=== PATIENT | male | born 1975 | race Caucasian/White ===

== ENCOUNTER 2018-04-09 15:36 | Inpatient (IN) | payer OTHER ==
[2018-04-09 17:37] VITALS: BMI 22.8
--- NOTE | 2018-04-09 19:35 | HP ---
Admission [facility] Chief Complaint: marijuana and cocaine rehabilitation Allergies/Adverse Reactions: Allergies Allergy/AdvReac Type Severity Reaction Status Date / Time No Known Allergies Allergy Verified 04/09/18 19:45 History of Present Illness: 42 yo male with hx of cocaine, marijuana, IV heroin, and nicotine dependence is here for rehabilitation. Patient reports recently started using heroin again in the last two days. Patient linked to MMTP: Sathish Kauffman on 50 mg, last mediated , dose pending verification. PMHX: HIV+ (non-compliance with medications) and anxiety. Denies suicidal / homicidal ideation or suicide attempt. Reports opioid overdose x 7, last episode six years ago. Last detox [facility] three months ago. Exam Limitations: No Limitations - Ebola screening Have you traveled outside of the country in the last 21 days: No Have you had contact with anyone from an Ebola affected area: No Have you been sick,other than usual withdrawal symptoms: No Do you have a fever: No - Review of Systems Constitutional: No Symptoms Reported EENT: reports: Other (uses reading glasses) Respiratory: reports: No Symptoms reported Cardiac: reports: No Symptoms Reported GI: reports: No Symptoms Reported : reports: No Symptoms Reported Musculoskeletal: reports: No Symptoms Reported Integumentary: reports: No Symptoms Reported Neuro: reports: No Symptoms reported Endocrine: reports: Increased Thirst Hematology: reports: See HPI Psychiatric: reports: Orientated x3, Anxious Other Systems: Reviewed and Negative Patient History - Patient Medical History Hx Anemia: No Hx Asthma: No Hx Chronic Obstructive Pulmonary Disease (COPD): No Hx Cancer: No Hx Cardiac Disorders: No Hx Congestive Heart Failure: No Hx Hypertension: No Hx Hypercholesterolemia: No Hx Pacemaker: No HX Cerebrovascular Accident: No Hx Seizures: No Hx Dementia: No Hx Diabetes: No Hx Gastrointestinal Disorders: No Hx Liver Disease: No Hx Genitourinary Disorders: No Hx Sexually Transmitted Disorders: No Hx Renal Disease (ESRD): No Hx Thyroid Disease: No Hx Human Immunodeficiency Virus (HIV): Yes (+ 1995, Trivicay and Discovy stopped taking med 5 months ) Hx Hepatitis C: Yes (did not complete treatment ) Hx Depression: No Hx Suicide Attempt: No Hx Bipolar Disorder: No Hx Schizophrenia: No - Patient Surgical History Past Surgical History: Yes Hx Neurologic Surgery: No Hx Cataract Extraction: No Hx Cardiac Surgery: No Hx Lung Surgery: No Hx Breast Surgery: No Hx Breast Biopsy: No Hx Abdominal Surgery: No Hx Appendectomy: No Hx Cholecystectomy: No Hx Genitourinary Surgery: No Hx Section: No Hx Orthopedic Surgery: Yes (fx right ankle 2007) Anesthesia Reaction: No - PPD History Previous Implant?: No Documented Results: Negative w/o proof Implanted On Prior [facility] Admission?: No PPD to be Administered?: Yes - Smoking Cessation Smoking history: Current every day smoker Have you smoked in the past 12 months: Yes Aproximately how many cigarettes per day: 7 Hx Chewing Tobacco Use: No Initiated information on smoking cessation: Yes 'Breaking Loose' booklet given: 04/09/18 - Substance & Tx. History Hx Alcohol Use: No Hx Substance Use: Yes Substance Use Type: Cocaine, Heroin, Marijuana Hx Substance Use Treatment: Yes ([facility] three months ago ) - Substances Abused Cocaine Route: Injection Frequency: Daily Amount used: 5 - 6 bags Age of first use: 15 Date of Last Use: 04/08/18 Heroin Route: Injection Frequency: Daily Amount used: 4 bags Age of first use: 15 Date of Last Use: 04/08/18 Marijuana/Hashish Route: Smoking Frequency: Daily Amount used: 1 blunt Age of first use: 42 Date of Last Use: 04/08/18 Family Disease History - Family Disease History Family History: Denies Admission Physical Exam [facility] - Vital Signs Vital Signs: Vital Signs - 24 hr 04/09/18 17:34 Temperature 96.6 F L Pulse Rate 53 L Respiratory 18 Rate Blood Pressure 118/82 - Physical General Appearance: Yes: Disheveled, Thin, Anxious HEENTM: Yes: EOMI, Hearing grossly Normal, Normal ENT Inspection, Normocephalic , ANASTASIIA, Pharynx Normal, Tm's normal, Other (poor dentition) Respiratory: Yes: Within Normal Limits Neck: Yes: Within Normal Limits Breast: Yes: Breast Exam Deferred Cardiology: Yes: Regular Rhythm, Regular Rate Abdominal: Yes: Normal Bowel Sounds, Non Tender, Flat, Soft Genitourinary: Yes: Within Normal Limits Back: Yes: Normal Inspection Musculoskeletal: Yes: full range of Motion, Gait Steady, Pelvis Stable Extremities: Yes: Within Normal Limits Neurological: Yes: ink grinder II-XII NML intact, Fully Oriented, Alert, Motor Strength 5/5, Normal Mood/Affect, Normal Response Integumentary: Yes: Normal Color, Warm, Track Adkins (right side neck, no infection present left fore arm, no infection) Lymphatic: Yes: Within Normal Limits - Diagnostic (1) Marijuana dependence Current Visit: Yes Status: Acute (2) Opioid dependence on agonist therapy Current Visit: Yes Status: Acute Comment: on MMTP: Sathish Kauffman on methadone 50 mg qd, dose pending verification (3) Cocaine dependence Current Visit: Yes Status: Acute Qualifiers: Substance use status: uncomplicated Qualified Code(s): F14.20 - Cocaine dependence, uncomplicated (4) HIV (human immunodeficiency virus infection) Current Visit: Yes Status: Chronic BHS Breath Alcohol Content Breath Alcohol Content: 0 Urine Drug Screen - Results Drug Screen Negative: No Urine Drug Screen Results: THC-Marijuana, GRETCHEN-Cocaine, OPI-Opiates, MTD- Methadone Inpatient Rehab Admission - Initial Determination Are CD services needed?: Yes Free of communicable disease: Yes Not in need of hospitalization: Yes - Rehab Admission Criteria Previous failed treatment: Yes Poor recovery environment: Yes Comorbidities: Yes Lacks judgement: Yes Patient is meeting Inpatient Rehab admission criteria:: Yes
[2018-04-09] MEDS ORDERED: MAG HYDROX/AL HYDROX/SIMETH 30 ML UNIT-DOSE CUP PO PRN (19:47)
[2018-04-09] MEDS ORDERED: MAGNESIUM HYDROX 2400MG/30ML ORAL SUSPENSION 30 ML CUP PO PRN (19:47)
[2018-04-09] MEDS ORDERED: guaiFENesin/D-METHORPHAN HB 10 ML UNIT-DOSE CUPS PO PRN (19:47)
[2018-04-09] MEDS ORDERED: MENTHOL/PHENOL 1 EACH UD MM PRN (19:47)
[2018-04-09] MEDS ORDERED: MAGNESIUM CITRATE 300 ML BOTTLE PO PRN (19:47)
[2018-04-09] MEDS ORDERED: LOPERAMIDE HCL 2 MG CAPSULE PO PRN (19:47)
[2018-04-09] MEDS ORDERED: ACETAMINOPHEN 325 MG TABLET (FP) PO PRN (19:47)
[2018-04-09] MEDS ORDERED: P-EPHED 60MG/TRIPROLIDI 2.5MG TABLET PO PRN (19:47)
[2018-04-09] MEDS ORDERED: IBUPROFEN 400 MG TABLET (FP) PO PRN (19:47)
[2018-04-09] MEDS ORDERED: TUBERCULIN PPD 5 TU/0.1ML VIAL ID ONE (21:55)
[2018-04-09] MEDS: THIAMINE HCL 100 MG TABLET (FP) PO SCH (23:15)
[2018-04-10 01:58] LABS: URINE APPEARANCE CLEAR; URINE BILIRUBIN NEGATIVE (<2.0 mg/dL); URINE COLOR DKYELLOW; URINE GLUCOSE (UA) NEGATIVE (NEGATIVE); URINE KETONE NEGATIVE (NEGATIVE); URINE LEUK ESTERASE NEGATIVE (NEGATIVE); URINE NITRITE NEGATIVE (NEGATIVE); URINE PROTEIN NEGATIVE (NEGATIVE)
[2018-04-10] MEDS: PRENATAL VITAMINS W/ FOLIC ACID TABLET (FP) PO SCH (09:52)
[2018-04-10] MEDS: NICOTINE 14 MG/24 HOURS TOPICAL PATCH TD SCH (09:54)
[2018-04-10] MEDS ORDERED: METHADONE HCL 40 MG DISPERSABLE TABLET PO ONE (10:00)
[2018-04-10] MEDS ORDERED: METHADONE 40 MG, METHADONE 10 MG PO ONE (10:25)
[2018-04-10] MEDS ORDERED: METHADONE HCL 10 MG TABLET ONE (10:27)
[2018-04-10] MEDS ORDERED: METHADONE HCL 40 MG DISPERSABLE TABLET ONE (10:28)
--- NOTE | 2018-04-10 11:39 | HP ---
Psychiatrist Admission - Data Date of interview: 04/10/18 Admission source: [facility] Identifying data: Patient is a 42 year old male, father of two, unemployed, residing in a intermediate, and is supported by food stamps. This is patient's first admission in rehab at [facility]. Pt. admitted to rehab for opiate and cocaine dependence. Medical History: HIV, Hep C Psychiatric History: Patient denies h/o psychiatric hospitalization, outpatient care, and suicide attempt. Pt. is currently in the [facility] Methadone program and is on a Methadone Maintenance of 50mg daily. Physical/Sexual Abuse/Trauma History: denies. Vital Signs: Vital Signs - 24 hr 04/09/18 04/09/18 04/10/18 17:34 22:01 00:30 Temperature 96.6 F L 99.0 F Pulse Rate 53 L 50 L Respiratory 18 18 18 Rate Blood Pressure 118/82 129/86 04/10/18 04/10/18 03:30 06:41 Temperature 97.8 F Pulse Rate 52 L Respiratory 18 16 Rate Blood Pressure 131/76 Allergies/Adverse Reactions: Allergies Allergy/AdvReac Type Severity Reaction Status Date / Time No Known Allergies Allergy Verified 04/09/18 19:45 Date of last physical exam: 04/09/18 Concur with the findings of this exam: Yes - Substance Abuse/Tx History Hx Alcohol Use: No Hx Substance Use: Yes (Cocaine- 7-8 bags daily Heroin- 7-8 bags daily) Substance Use Type: Cocaine, Heroin Hx Substance Use Treatment: No Mental Status Exam - Mental Status Exam Alert and Oriented to: Time, Place, Person Cognitive Function: Good Patient Appearance: Well Groomed Mood: Hopeful, Euthymic Affect: Appropriate Patient Behavior: Appropriate, Cooperative Speech Pattern: Clear, Appropriate (Pashto speaking) Voice Loudness: Normal Thought Process: Intact, Goal Oriented Thought Disorder: Not Present Hallucinations: Denies Suicidal Ideation: Denies Homicidal Ideation: Denies Insight/Judgement: Poor Sleep: Fair Appetite: Fair Muscle strength/Tone: Normal Gait/Station: Normal Psychiatric Findings - Problem List ([place] 1, 2,3) (1) Cocaine dependence Current Visit: Yes Status: Acute Qualifiers: Substance use status: uncomplicated Qualified Code(s): F14.20 - Cocaine dependence, uncomplicated (2) Marijuana dependence Current Visit: Yes Status: Acute (3) Opioid dependence on agonist therapy Current Visit: Yes Status: Chronic Comment: on MMTP: Sathish Kauffman on methadone 50 mg qd, dose pending verification - Initial Treatment Plan Initial Treatment Plan: Psychoeducation provided. Rehab in progress. Observation.
--- NOTE | 2018-04-10 12:32 | EKG ---
Test Reason : Blood Pressure : / mmHG Vent. Rate : 048 BPM Atrial Rate : 048 BPM P-R Int : 138 ms QRS Dur : 130 ms QT Int : 472 ms P-R-T Axes : 053 055 061 degrees QTc Int : 421 ms SINUS BRADYCARDIA RIGHT BUNDLE BRANCH BLOCK VOLTAGE CRITERIA FOR LEFT VENTRICULAR HYPERTROPHY ABNORMAL ECG NO PREVIOUS ECGS AVAILABLE Confirmed by COSME CROCKER MD ([id number]) on 04/10/2018 12:32:04 PM Referred By: Confirmed By:COSME CROCKER MD
[2018-04-10 16:08] LABS: HEMATOCRIT 35.9 % (35.4-49); MCH 31.3 pg (25.7-33.7); MCHC 33.4 g/dl (32.0-35.9); MEAN CELL VOLUME 93.8 fl (80-96); MEAN PLT VOLUME 9.9 fl (7.5-11.1); PLATELET COUNT 207 K/MM3 (134-434); RBC 3.83 M/mm3 (4.00-5.60); RDW 13.9 % (11.9-15.9); WHITE BLOOD COUNT 4.4 K/mm3 (4.0-10.0)
[2018-04-10 16:35] LABS: ALK PHOS 79 U/L (45-117); ANION GAP 7 MMOL/L (8-16); BILIRUBIN,TOTAL 0.2 mg/dL (0.2-1.0); BLOOD UREA NITROGEN 11 mg/dL (7-18); CALCIUM 8.5 mg/dL (8.5-10.1); CHLORIDE 105 mmol/L (98-107); CO2 30 mmol/L (21-32); CREATININE 0.7 mg/dL (0.7-1.3); GLUCOSE,RANDOM 93 mg/dL (74-106); SGOT/AST 24 U/L (15-37); SGPT/ALT 26 U/L (12-78); SODIUM 142 mmol/L (136-145); TOT PROT 7.8 g/dl (6.4-8.2)
[2018-04-10] MEDS: NICOTINE POLACRILEX 2 MG GUM BC PRN (20:09)
[2018-04-10] MEDS: THIAMINE HCL 100 MG TABLET (FP) PO SCH (21:52)
[2018-04-11] MEDS ORDERED: METHADONE HCL 10 MG TABLET ONE (04:36)
[2018-04-11] MEDS ORDERED: METHADONE HCL 40 MG DISPERSABLE TABLET ONE (04:36)
[2018-04-11] MEDS ORDERED: METHADONE HCL 10 MG TABLET PO SCH (06:00)
[2018-04-11] MEDS: METHADONE 40 MG, METHADONE 10 MG PO SCH (06:59)
[2018-04-11] MEDS: PRENATAL VITAMINS W/ FOLIC ACID TABLET (FP) PO SCH (09:49)
[2018-04-11] MEDS: NICOTINE 14 MG/24 HOURS TOPICAL PATCH TD SCH (09:49)
--- NOTE | 2018-04-11 13:11 | PN ---
[facility] Progress Note Note: Vital Signs Temperature 98.5 F 04/11/18 06:38 Pulse Rate 52 L 04/11/18 06:38 Respiratory Rate 16 04/11/18 06:38 Blood Pressure 135/73 04/11/18 06:38 O2 Sat by Pulse Oximetry (%) Laboratory Last Values WBC 4.4 K/mm3 (4.0-10.0) 04/10/18 10:30 RBC 3.83 M/mm3 (4.00-5.60) L 04/10/18 10:30 Hgb 12.0 GM/dL (11.7-16.9) 04/10/18 10:30 Hct 35.9 % (35.4-49) 04/10/18 10:30 MCV 93.8 fl (80-96) 04/10/18 10:30 MCH 31.3 pg (25.7-33.7) 04/10/18 10:30 MCHC 33.4 g/dl (32.0-35.9) 04/10/18 10:30 RDW 13.9 % (11.9-15.9) 04/10/18 10:30 Plt Count 207 K/MM3 (134-434) 04/10/18 10:30 MPV 9.9 fl (7.5-11.1) 04/10/18 10:30 Sodium 142 mmol/L (136-145) 04/10/18 10:30 Potassium 4.0 mmol/L (3.5-5.1) 04/10/18 10:30 Chloride 105 mmol/L (98-107) 04/10/18 10:30 Carbon Dioxide 30 mmol/L (21-32) 04/10/18 10:30 Anion Gap 7 MMOL/L (8-16) L 04/10/18 10:30 BUN 11 mg/dL (7-18) 04/10/18 10:30 Creatinine 0.7 mg/dL (0.7-1.3) 04/10/18 10:30 Creat Clearance w eGFR > 60 (>60) 04/10/18 10:30 Random Glucose 93 mg/dL (74-106) 04/10/18 10:30 Calcium 8.5 mg/dL (8.5-10.1) 04/10/18 10:30 Total Bilirubin 0.2 mg/dL (0.2-1.0) 04/10/18 10:30 AST 24 U/L (15-37) 04/10/18 10:30 ALT 26 U/L (12-78) 04/10/18 10:30 Alkaline Phosphatase 79 U/L (45-117) 04/10/18 10:30 Total Protein 7.8 g/dl (6.4-8.2) 04/10/18 10:30 Albumin 3.0 g/dl (3.4-5.0) L 04/10/18 10:30 Urine Color Dkyellow 04/10/18 00:00 Urine Appearance Clear 04/10/18 00:00 Urine pH 6.0 (5.0-8.0) 04/10/18 00:00 Ur Specific [place] 1.027 (1.001-1.035) 04/10/18 00:00 Urine Protein Negative (NEGATIVE) 04/10/18 00:00 Urine Glucose (UA) Negative (NEGATIVE) 04/10/18 00:00 Urine Ketones Negative (NEGATIVE) 04/10/18 00:00 Urine Blood Negative (NEGATIVE) 04/10/18 00:00 Urine Nitrite Negative (NEGATIVE) 04/10/18 00:00 Urine Bilirubin Negative (<2.0 mg/dL) 04/10/18 00:00 Urine Urobilinogen 2.0 mg/dL (0.2-1.0) 04/10/18 00:00 Ur Leukocyte Esterase Negative (NEGATIVE) 04/10/18 00:00 RPR Titer Nonreactive (NONREACTIVE) 04/10/18 10:30 labs reviewed continue to monitor
[2018-04-11] MEDS: THIAMINE HCL 100 MG TABLET (FP) PO SCH (21:48)
[2018-04-12] MEDS ORDERED: METHADONE HCL 10 MG TABLET ONE (04:17)
[2018-04-12] MEDS ORDERED: METHADONE HCL 40 MG DISPERSABLE TABLET ONE (04:18)
[2018-04-12] MEDS: METHADONE 40 MG, METHADONE 10 MG PO SCH (06:25)
[2018-04-12] MEDS: PRENATAL VITAMINS W/ FOLIC ACID TABLET (FP) PO SCH (10:14)
[2018-04-12] MEDS: NICOTINE 14 MG/24 HOURS TOPICAL PATCH TD SCH (10:15)
[2018-04-12] MEDS: NICOTINE POLACRILEX 2 MG GUM BC PRN (10:16)
[2018-04-12] MEDS: MELATONIN 5 MG TABLETS PO PRN (21:59)
[2018-04-12] MEDS: THIAMINE HCL 100 MG TABLET (FP) PO SCH (21:59)
[2018-04-13] MEDS ORDERED: METHADONE HCL 40 MG DISPERSABLE TABLET ONE (05:06)
[2018-04-13] MEDS ORDERED: METHADONE HCL 10 MG TABLET ONE (05:06)
[2018-04-13] MEDS: METHADONE 40 MG, METHADONE 10 MG PO SCH (06:28)
[2018-04-13] MEDS: PRENATAL VITAMINS W/ FOLIC ACID TABLET (FP) PO SCH (10:05)
[2018-04-13] MEDS: NICOTINE 14 MG/24 HOURS TOPICAL PATCH TD SCH (10:05)
[2018-04-13] MEDS: NICOTINE POLACRILEX 2 MG GUM BC PRN (10:06)
[2018-04-13] MEDS: THIAMINE HCL 100 MG TABLET (FP) PO SCH (22:06)
[2018-04-14] MEDS ORDERED: METHADONE HCL 40 MG DISPERSABLE TABLET ONE (02:08)
[2018-04-14] MEDS ORDERED: METHADONE HCL 10 MG TABLET ONE (02:08)
[2018-04-14] MEDS: METHADONE 40 MG, METHADONE 10 MG PO SCH (06:30)
[2018-04-14] MEDS: PRENATAL VITAMINS W/ FOLIC ACID TABLET (FP) PO SCH (10:03)
[2018-04-14] MEDS: NICOTINE 14 MG/24 HOURS TOPICAL PATCH TD SCH (10:03)
[2018-04-14] MEDS: NICOTINE POLACRILEX 2 MG GUM BC PRN ×2 (10:04→21:36)
[2018-04-14] MEDS: MELATONIN 5 MG TABLETS PO PRN (21:35)
[2018-04-14] MEDS: THIAMINE HCL 100 MG TABLET (FP) PO SCH (21:35)
[2018-04-15] MEDS ORDERED: METHADONE HCL 10 MG TABLET ONE (04:58)
[2018-04-15] MEDS ORDERED: METHADONE HCL 40 MG DISPERSABLE TABLET ONE (04:58)
[2018-04-15] MEDS: METHADONE 40 MG, METHADONE 10 MG PO SCH (06:48)
[2018-04-15] MEDS: NICOTINE 14 MG/24 HOURS TOPICAL PATCH TD SCH (12:07)
[2018-04-15] MEDS: PRENATAL VITAMINS W/ FOLIC ACID TABLET (FP) PO SCH (12:07)
[2018-04-15] MEDS: THIAMINE HCL 100 MG TABLET (FP) PO SCH (22:16)
[2018-04-16] MEDS ORDERED: METHADONE HCL 40 MG DISPERSABLE TABLET ONE (03:29)
[2018-04-16] MEDS ORDERED: METHADONE HCL 10 MG TABLET ONE (03:29)
[2018-04-16] MEDS: METHADONE 40 MG, METHADONE 10 MG PO SCH (06:36)
[2018-04-16] MEDS: PRENATAL VITAMINS W/ FOLIC ACID TABLET (FP) PO SCH (10:15)
[2018-04-16] MEDS: NICOTINE 14 MG/24 HOURS TOPICAL PATCH TD SCH (10:15)
[2018-04-16] MEDS: NICOTINE POLACRILEX 2 MG GUM BC PRN ×2 (14:46→21:34)
[2018-04-16] MEDS: MELATONIN 5 MG TABLETS PO PRN (21:33)
[2018-04-16] MEDS: THIAMINE HCL 100 MG TABLET (FP) PO SCH (21:33)
[2018-04-17] MEDS: METHADONE 40 MG, METHADONE 10 MG PO SCH (06:35)
[2018-04-17] MEDS ORDERED: METHADONE HCL 40 MG DISPERSABLE TABLET ONE (06:35)
[2018-04-17] MEDS ORDERED: METHADONE HCL 10 MG TABLET ONE (06:35)
[2018-04-17] MEDS: NICOTINE 14 MG/24 HOURS TOPICAL PATCH TD SCH (10:04)
[2018-04-17] MEDS: PRENATAL VITAMINS W/ FOLIC ACID TABLET (FP) PO SCH (10:04)
[2018-04-17] MEDS: NICOTINE POLACRILEX 2 MG GUM BC PRN (10:06)
[2018-04-17] MEDS: THIAMINE HCL 100 MG TABLET (FP) PO SCH (21:56)
[2018-04-18] MEDS ORDERED: METHADONE HCL 40 MG DISPERSABLE TABLET ONE (03:36)
[2018-04-18] MEDS ORDERED: METHADONE HCL 10 MG TABLET ONE (03:36)
[2018-04-18] MEDS: METHADONE 40 MG, METHADONE 10 MG PO SCH (06:43)
[2018-04-18] MEDS: PRENATAL VITAMINS W/ FOLIC ACID TABLET (FP) PO SCH (10:06)
[2018-04-18] MEDS: NICOTINE 14 MG/24 HOURS TOPICAL PATCH TD SCH (10:06)
[2018-04-18] MEDS: NICOTINE POLACRILEX 2 MG GUM BC PRN (10:07)
[2018-04-18] MEDS: THIAMINE HCL 100 MG TABLET (FP) PO SCH (21:53)
[2018-04-19] MEDS ORDERED: METHADONE HCL 10 MG TABLET ONE (05:17)
[2018-04-19] MEDS ORDERED: METHADONE HCL 40 MG DISPERSABLE TABLET ONE (05:18)
[2018-04-19] MEDS: METHADONE 40 MG, METHADONE 10 MG PO SCH (06:27)
[2018-04-19] MEDS: PRENATAL VITAMINS W/ FOLIC ACID TABLET (FP) PO SCH (10:31)
[2018-04-19] MEDS: NICOTINE POLACRILEX 2 MG GUM BC PRN ×2 (10:31→21:20)
[2018-04-19] MEDS: NICOTINE 14 MG/24 HOURS TOPICAL PATCH TD SCH (10:31)
[2018-04-19] MEDS: MELATONIN 5 MG TABLETS PO PRN (21:19)
[2018-04-19] MEDS: THIAMINE HCL 100 MG TABLET (FP) PO SCH (21:19)
[2018-04-20] MEDS ORDERED: METHADONE HCL 40 MG DISPERSABLE TABLET ONE (04:23)
[2018-04-20] MEDS ORDERED: METHADONE HCL 10 MG TABLET ONE (04:23)
[2018-04-20] MEDS: METHADONE 40 MG, METHADONE 10 MG PO SCH (06:39)
[2018-04-20] MEDS: NICOTINE POLACRILEX 2 MG GUM BC PRN ×2 (08:49→21:21)
[2018-04-20] MEDS: PRENATAL VITAMINS W/ FOLIC ACID TABLET (FP) PO SCH (11:44)
[2018-04-20] MEDS: NICOTINE 14 MG/24 HOURS TOPICAL PATCH TD SCH (11:44)
[2018-04-20] MEDS: MELATONIN 5 MG TABLETS PO PRN (21:20)
[2018-04-20] MEDS: THIAMINE HCL 100 MG TABLET (FP) PO SCH (21:20)
[2018-04-21] MEDS ORDERED: METHADONE HCL 10 MG TABLET ONE (04:30)
[2018-04-21] MEDS ORDERED: METHADONE HCL 40 MG DISPERSABLE TABLET ONE (04:30)
[2018-04-21] MEDS: METHADONE 40 MG, METHADONE 10 MG PO SCH (06:49)
[2018-04-21] MEDS: NICOTINE POLACRILEX 2 MG GUM BC PRN (10:12)
[2018-04-21] MEDS: PRENATAL VITAMINS W/ FOLIC ACID TABLET (FP) PO SCH (10:12)
[2018-04-21] MEDS: NICOTINE 14 MG/24 HOURS TOPICAL PATCH TD SCH (10:12)
[2018-04-21] MEDS: THIAMINE HCL 100 MG TABLET (FP) PO SCH (23:49)
[2018-04-22] MEDS ORDERED: METHADONE HCL 10 MG TABLET ONE (03:19)
[2018-04-22] MEDS ORDERED: METHADONE HCL 40 MG DISPERSABLE TABLET ONE (03:19)
[2018-04-22] MEDS: METHADONE 40 MG, METHADONE 10 MG PO SCH (06:29)
[2018-04-22 06:49] VITALS: BP 130/74; PULSE 58; TEMP 97.6
--- NOTE | 2018-04-22 09:37 | PN ---
Psychiatric Progress Note Vital Signs: Vital Signs Period Temp Pulse Resp BP Sys/Wilson Pulse Ox Last 24 Hr 97.6 F 58 16-18 130/74 Date of Session: 04/22/18 Chief Complaint:: Discharge Note HPI: Patient addressing Cocaine and Cannabis Dependence comorbid with Opioid Dependence on Agonist Therapy and Nicotine Dependence ROS: HIV, Hep C Current Medications: Active Medications Generic Name Dose Route Start Last Admin Trade Name Freq PRN Reason Stop Dose Admin Acetaminophen 650 mg 04/09/18 19:47 Tylenol - PO Q4H PRN FEVER Al Hydroxide/Mg Hydroxide 30 ml 04/09/18 19:47 Mylanta Oral Suspension - PO Q6H PRN DYSPEPSIA Eucalyptus/Menthol/Phenol/Sorbitol 1 each 04/09/18 19:47 Cepastat Lozenge - MM Q4H PRN SORE THROAT Guaifenesin 10 ml 04/09/18 19:47 Robitussin Dm - PO Q6H PRN COUGH Ibuprofen 400 mg 04/09/18 19:47 Motrin - PO Q6H PRN Pain level 4-6 Loperamide HCl 4 mg 04/09/18 19:47 Imodium - PO Q6H PRN DIARRHEA Magnesium Citrate 300 ml 04/09/18 19:47 04/20/18 06:41 Citroma - PO 300 ml Q48H PRN Administration CONSTIPATION Magnesium Hydroxide 30 ml 04/09/18 19:47 04/18/18 10:07 Milk Of Magnesia - PO 30 ml DAILY PRN Administration CONSTIPATION Melatonin 5 mg 04/09/18 22:00 04/20/18 21:20 Melatonin PO 5 mg HS PRN Administration INSOMNIA Methadone HCl 40 mg/ Methadone 50 mg 04/17/18 06:00 04/22/18 06:29 HCl 10 mg PO 04/24/18 05:59 50 mg DAILY@0600 JIMI Administration Nicotine 14 mg 04/10/18 10:00 04/21/18 10:12 Nicoderm Patch - TD 14 mg DAILY JIMI Administration Nicotine Polacrilex 2 mg 04/09/18 19:47 04/21/18 10:12 Nicorette Gum - BC 2 mg Q2H PRN Administration NICOTINE REPLACEMENT RX Multivit/Folic Acid/Iron 1 tab 04/10/18 10:00 04/21/18 10:12 Vitamins ([facility]) - PO 1 tab DAILY JIMI Administration Pseudoephedrine/Triprolidine 1 combo 04/09/18 19:47 Actifed - PO TID PRN NASAL CONGESTION Thiamine HCl 100 mg 04/09/18 22:00 04/21/18 23:49 Vitamin B1 - PO Not Given HS JIMI Current Side Effect: No Lab tests ordered: Yes Lab tests reviewed: Yes Provider note:: Patient has completed this program today. He has met his treatment goals and will continue to address his issues in attending NA since he refused referral for outpatient treatment. Told abstract writer that from his participation in this program, he has learned the importance of making meetings. He is stable for discharge today Total face to face time:: 35 Mental Status Exam - Mental Status Exam Alert and Oriented to: Time, Place, Person Cognitive Function: Fair Patient Appearance: Well Groomed Mood: Hopeful, Euthymic Affect: Appropriate Patient Behavior: Cooperative Speech Pattern: Clear Voice Loudness: Normal Thought Process: Intact Thought Disorder: Not Present Hallucinations: Denies Suicidal Ideation: Denies Homicidal Ideation: Denies Insight/Judgement: Fair Sleep: Fair Appetite: Good Muscle strength/Tone: Normal Gait/Station: Normal Psychiatric Treatment Plan - Problem List (1) Cocaine dependence Current Visit: Yes Qualifiers: Substance use status: uncomplicated Qualified Code(s): F14.20 - Cocaine dependence, uncomplicated (2) Cannabis dependence Current Visit: Yes (3) Opioid dependence on agonist therapy Current Visit: Yes Comment: on MMTP: Sathish Kauffman on methadone 50 mg qd, dose pending verification (4) Nicotine dependence Current Visit: Yes (5) HIV (human immunodeficiency virus infection) Current Visit: Yes (6) Hepatitis C Current Visit: Yes Initial treatment plan: Patient is discharged today and [facility]
[2018-04-22] MEDS: NICOTINE 14 MG/24 HOURS TOPICAL PATCH TD SCH (10:22)
[2018-04-22] MEDS: PRENATAL VITAMINS W/ FOLIC ACID TABLET (FP) PO SCH (10:22)
== END 2018-04-22 10:45 | disposition home or self-care (01) | DRG 772 ==
LOC: YASAS 15:36 → Y5N 20:11
PROC: HZ42ZZZ Group Counseling for Substance Abuse Treatment, Cognitive-Behavioral (ICD-10-PCS; principal; 2018-04-09)
DX: F14.20 Cocaine dependence, uncomplicated (principal); F12.20 Cannabis dependence, uncomplicated; F17.210 Nicotine dependence, cigarettes, uncomplicated; F41.9 Anxiety disorder, unspecified; B18.2 Chronic viral hepatitis C; Z21 Asymptomatic human immunodeficiency virus [HIV] infection status
CPT/HCPCS: 36415; 80053; 81003; 85027; 86593; 93005; 93010